=== PATIENT | female | born 1990 | race Caucasian/White ===

== ENCOUNTER 2024-07-02 10:52 | Emergency (ER) | payer OTHER ==
[~2024-07-02] VITALS: Ht 165.1 cm; Wt 85.3 kg
[2024-07-02 10:55] VITALS: O2SAT 99
[2024-07-02] MEDS: BACITRACIN ZINC OINT UDPKT TOP ONE (11:45)
[2024-07-02] MEDS: LIDOCAINE HCL/PF 1% 10 MG/ML 5ML VIAL INFIL ONE (11:45)
[2024-07-02] MEDS ORDERED: IBUP-2028 MT (13:01)
[2024-07-02] MEDS ORDERED: BO1 TP (13:01)
[2024-07-02] MEDS: TETANUS, DIPHTHERIA, PERTUSSIS VAC/PF 0.5ML (>10YR OLD) IM ONE (13:15)
[2024-07-02 13:16] VITALS: BP 112/71; PULSE 70; RESP 18; TEMP 98.7
== END 2024-07-02 13:18 | disposition home or self-care (01) ==
LOC: ER 10:52
DX: S61.411A Laceration without foreign body of right hand, initial encounter (principal); W18.30XA Fall on same level, unspecified, initial encounter; Y93.89 Activity, other specified; Y92.89 Other specified places as the place of occurrence of the external cause; Y99.8 Other external cause status
CPT/HCPCS: 81025; 73110; 90715; 12002; 90471; 99283; J3490; Z7610 ×4